=== PATIENT | female | born 1980 | race Caucasian/White ===

== ENCOUNTER 2018-07-10 21:10 | Inpatient (IN) | payer OTHER ==
[~2018-07-10] VITALS: Ht 167.6 cm; Wt 83.2 kg
[2018-07-10] MEDS ORDERED: ELIQUIS5 MG PO (21:14)
[2018-07-10] MEDS ORDERED: ULTRAM50 MG PO (21:15)
[2018-07-10] MEDS ORDERED: CHANTIX0.5 MG PO (21:15)
[2018-07-10 21:41] LABS: BASOPHILS 0.4 % (0-2); EOSINOPHILS 2.2 % (0-7); HEMATOCRIT 40.6 % (36.0-48.0); IMMATURE GRANULOCYTES 0.1 % (0-5); LYMPHOCYTES 35.9 % (15-50); MCH 30.2 pg (26.0-34.0); MCHC 34.5 g/dL (31.0-37.0); MCV 87.7 fL (80.0-100.0); MEAN PLATELET VOLUME 9.8 fL (7.4-10.4); MONOCYTES 7.3 % (2-11); NEUTROPHILS 54.1 % (40-80); PLATELET COUNT 240 10x3/uL (130-400); RBC 4.63 10x6/uL (4.00-5.40); RDW 12.4 % (11.5-14.5); WBC 7.3 10x3/uL (4.8-10.8)
[2018-07-10 21:53] LABS: ALBUMIN 3.6 g/dL (3.4-5.0); BILIRUBIN - TOTAL 0.42 mg/dL (0.2-1.3); CALCIUM 9.3 mg/dL (8.5-10.1); CARBON DIOXIDE 23.3 mmol/L (21.0-32.0); CREATININE - SERUM 1.1 mg/dL (0.6-1.3); POTASSIUM - SERUM 3.3 mmol/L (3.5-5.1); PROTEIN - SERUM 7.9 g/dL (6.4-8.2)
[2018-07-10 21:56] LABS: INR 1.08 (0.85-1.17); PROTIME 13.5 SECONDS (11.6-15.0)
[2018-07-10 21:58] LABS: D-DIMER-QUANTITATIVE 2.03 ug/mLFEU (0.20-0.54)
--- NOTE | 2018-07-10 23:00 | NUR ---
RECEIVED PT FROM ER VIA WHEEL CHAIR. PT IS ALERT. NO SIGNS OF DISTRESS AT THIS TIME. PT HAS A IV IN THE RIGHT FOREARM. BED IN LOW POSITION WITH CALL LIGHT IN REACH. WILL CONTINUE TO MONITOR PT AND FOLLOW PLAN OF CARE.
[2018-07-11 03:19] VITALS: BP 102/62; BMI 29.6
--- NOTE | 2018-07-11 05:50 | NUR ---
RESTING IN BED WITH EYES CLOSED. NO S/S OF DISTRESS OBSERVED. WILL CONT. POC.
--- NOTE | 2018-07-11 07:15 | NUR ---
REPORT RECIEVED AND MORNING ROUNDING COMPLETE. PT LAYING IN BED EYES CLOSED BREATHING EVEN AND UNLABORED. PT EASILY AROUSED. PT STATES NO NEEDS AT THIS TIME. CALL LIGHT WITHIN REACH AND BED IN LOWEST POSITION.
--- NOTE | 2018-07-11 09:40 | NUR ---
NO NEEDS OR C/O VOICED. CALL LIGHT IN REACH. WILL CONT. PLAN OF CARE.
[2018-07-11 09:49] VITALS: Ht 167.6 cm; Wt 83.2 kg
--- NOTE | 2018-07-11 19:30 | NUR ---
AWAKE AMBULATING BACK TO BED FROM THE BATHROOM. STATED HER RIGHT UPPER ABD FELT TENDER AND BRUISED. A VERY SMALL INJECTION SITE BRUISE NOTED AND TENDER TO TOUCH. ALSO C/O RIGHT UPPER ARM PAIN AND RIGHT ARM IV SITE DISCOMFORT. IV SITE LOOK GOOD, NO REDNESS OR SWELLING NOTED. FLUSHED GOOD AND SHE STATED SHE COULD TASTE THE SALINE. TELEMETRY SHOWS 52 SB. ORIENTED TO CALL LIGHT FOR ANY NEEDS.
--- NOTE | 2018-07-11 22:42 | NUR ---
ADMIN ZOFRAN FOR C/O NAUSEA AND HAD VOMITED APPROX 100 ML.
--- NOTE | 2018-07-12 01:00 | NUR ---
LYING ON RIGHT SIDE WITH EYES CLOSED. NO S/S OF DISCOMFORT. BED IS LOW WITH CALL LIGHT IN REACH.
[2018-07-12 05:39] LABS: BASOPHILS 0.7 % (0-2); EOSINOPHILS 3.9 % (0-7); HEMATOCRIT 39.7 % (36.0-48.0); HEMOGLOBIN 13.1 g/dL (12-16); IMMATURE GRANULOCYTES 0.2 % (0-5); LYMPHOCYTES 39.5 % (15-50); MCH 29.6 pg (26.0-34.0); MEAN PLATELET VOLUME 9.8 fL (7.4-10.4); MONOCYTES 7.3 % (2-11); NEUTROPHILS 48.4 % (40-80); PLATELET COUNT 206 10x3/uL (130-400); RBC 4.42 10x6/uL (4.00-5.40); RDW 12.7 % (11.5-14.5); WBC 5.9 10x3/uL (4.8-10.8)
[2018-07-12 05:41] LABS: MCV 89.8 fL (80.0-100.0)
[2018-07-12 05:59] LABS: ANION GAP 13.4 mmol/L (8-16); CALCIUM 8.1 mg/dL (8.5-10.1); CARBON DIOXIDE 24.6 mmol/L (21.0-32.0)
--- NOTE | 2018-07-12 06:00 | NUR ---
AWAKE. STATES SHE FEELS TIGHTNESS IN HER CHEST AND HER RIGHT ARM HURTS. IV IN RIGHT ARM LOOKS GOOD WITH NO REDNESS OR SWELLING NOTED. DENIES ANY NEEDS.
--- NOTE | 2018-07-12 07:15 | NUR ---
REPORT RECIEVED AND MORING ROUNDING COMPLETE. PT LAYING IN BED EYES CLOSED. BREATHING SHALLOW AND EVEN. BED IN LOWEST POSITION AND CALL LIGHT WITHIN REACH.
--- NOTE | 2018-07-12 10:05 | NUR ---
PT WAS COMPLAINIG OF HAVING A HARD TIME BREATHING, PT'S HANDS STARTED TO CONTRACT AND SHE RPORTED THEM GOING COMPLETELY NUMB, PT WAS UNABLE TO SQUEEZE MY HAND. CALLED A RAPID RESPONSE.
[2018-07-12 10:32] LABS: CREATINE KINASE 78 UL (21-215)
[2018-07-12 10:33] LABS: TROPONIN-I < 0.017 ng/mL (0.000-0.060)
--- NOTE | 2018-07-12 12:10 | NUR ---
PT RESTING COMFORTABLY. NO NEEDS AT THIS TIME AT BEDSIDE. CALL LIGHT WITHIN REACH AND BED IN THE LOWEST POSITION
[2018-07-12] MEDS ORDERED: PROTONIX40 MG PO (12:38)
[2018-07-12] MEDS ORDERED: LOVENOX INJ100 MG/ML SC (12:38)
[2018-07-12] MEDS ORDERED: COUMADIN5 MG PO (12:38)
[2018-07-12] MEDS ORDERED: KLONOPIN1 MG PO (12:38)
--- NOTE | 2018-07-12 13:02 | NUR ---
RESP UL ON . AT BS. STATES SHE FEELS BETTER AT THIS TIME.
[2018-07-12 15:01] LABS: CREATINE KINASE 64 UL (21-215)
[2018-07-12 15:27] LABS: TROPONIN-I < 0.017 ng/mL (0.000-0.060)
--- NOTE | 2018-07-12 16:23 | NUR ---
PT'S RETURNED WITH ALL REQUIRED MEDICATIONS. WILL START DISCHARGE PAPERWORK.
--- NOTE | 2018-07-12 17:17 | NUR ---
PT DISCHARGED, REVIEWED PAPERWORK WITH PT. PT STATED UNDERSTOOD INSTRUCTIONS AND SIGNED PAPERWORK. REMOVED PT'S PIV FROM RIGHT FOREARM. HELD PRESSURE FOR 2 FULL MINTUES. MINNIUMAL BLEEDING NOTED. PT TOOK DOWN VIA WHEELCHAIR.
--- NOTE | 2018-07-13 12:00 | MORECARE ---
CASE MANAGEMENT DISCHARGE SUMMARY PATIENT: LUCAS GRIFFITHS UNIT: [id number] ADM DATE: 07/10/18 AGE: 38 : [birth year] SEX: F ROOM/BED: D.2139 AUTHOR: MICHEL RIVAS PHYSICIAN: REFERRING PHYSICIAN: REGINA CURTIS MD DATE OF SERVICE: 07/13/18 Discharge Plan Patient Name: LUCAS GRIFFITHS Facility: [facility]:[place] : 1980 Planned Disposition: Home Anticipated Discharge Date: 07/12/18 Discharge Date: 07/12/2018 Expected LOS: 2 Initial Reviewer: [email or web address] Initial Review Date: 07/13/2018 Generated: 07/13/18 1:00 pm Patient Name: LUCAS GRIFFITHS Page [id number] at 1200 All edits/amendments must be made on the electronic document DICTATION DATE: 07/13/18 1159 CHRONIC MANAGER: VANESSA 07/13/18 1159 RPT#: [id number] DC DATE:07/12/18 STATUS: DIS IN [facility] [address] [place] [address] END OF REPORT
[2018-07-14 10:19] LABS: ANA REFLEX - DIRECT Negative (Negative)
[2018-07-15 12:20] LABS: LUPUS - INTERPRETATION Comment: (()); LUPUS - THROMBIN TIME 22.3 sec (0.0-23.0); LUPUS - dRVVT 37.4 sec (0.0-47.0); PTT-LA 46.6 sec (0.0-51.9)
--- NOTE | 2018-07-17 12:22 | EC ---
PATIENT:LUCAS GRIFFITHS DATE OF SERVICE: 07/10/18 SEX: F MEDICAL RECORD: [id number] DATE OF : [birth year] LOCATION:D.M2 D.213 AGE OF PATIENT: 38 ADMISSION DATE: 07/10/18 REFERRING PHYSICIAN: INTERPRETING PHYSICIAN: LOWELL HONEYCUTT MD ECHOCARDIOGRAM REPORT ECHO CHARGES 4 ECHO COMPLETE Date: 07/11/18 CLINICAL DIAGNOSIS: PE ECHOCARDIOGRAPHIC MEASUREMENTS (adult normal given) AC root (d.<3.7cm) 2.5 cm LV Septum d (<1.2 cm> 1.1 cm Valve Excursion 1.8 cm LV Septum (systole) 1.4 cm Left Atria (s.<4.0cm> 2.9 cm LVPW d(<1.2cm) 1.2 cm RV (d.<2.3cm) 3.0 cm LVPW (sytole) 1.7 cm LV diastole(<5.6CM) 4.3 cm MV E-F(>70mm/sec) cm LV systole 2.0 cm LVOT Diameter 1.9 cm MV exc.(>10mm) cm Est.ejection fraction (50-75%) % DOPPLER: LVIT cm/sec A 33.0 cm/sec E 60.0 cm/sec LA cm/sec RVSP mmHg LVOT 98.0 cm/sec AOP1/2T m/s Asc. Ao 100 cm/sec RVOT 52.0 cm/sec RA cm/sec PA 78.0 cm/sec AV Gradient Peak 4.0 mmHg AV Mean 2.2 mmHg AV Area 2.8 cm MV Gradient Peak 1.8 mmHg MV Mean 0.58 mmHg MV Area cm COMMENTS: Junior Buyer: 1 KAMLESH LANDAVERDEOE Door Closer Mechanic: 3 Dr. Baldwin TAPE# PACS Pericardial Effusion N DATE OF SERVICE: Adequate 2-D echo, color flow and spectral Doppler, and M-mode. LVH is present. LV internal dimension is normal. Wall motion is normal. EF greater than 55%. Aortic valve is tricuspid. No evidence of stenosis by Doppler interrogation. Left atrium is normal. Mitral valve shows no prolapse. Trace MR. Right-sided chambers are grossly normal. Trace TR. TRANSINT:[id number] Voice Confirmation ID: [id number] DOCUMENT ID: [id number] ECHOCARDIOGRAM REPORT [id number] WEDEHASE,LUCAS LOWELL HONEYCUTT MD at 1222 CC: [id number] DICTATION DATE: 07/12/1856 HARBOR ENGINEER: 07/12/18 1143 DIS IN 07/12/18 [facility] [address] [place] [address]
--- NOTE | 2018-07-17 12:22 | CN ---
PATIENT NAME:LUCAS GRIFFITHS MEDICAL RECORD: [id number] : [birth year] LOCATION:D. D.2139 ADMIT DATE: 07/10/18 ACCOUNT: [id number] CONSULTING PHYSICIAN: LOWELL HONEYCUTT MD REFERRING PHYSICIAN: REGINA CURTIS MD DATE OF CONSULTATION: 07/12/2018 HISTORY: A 38-year-old female transferred from outside hospital after found to have multiple PEs. Currently, she is having hypercoagulable state. No family history of hypercoagulable state or recurrent PEs. She does have history of irritable bowel syndrome but not true autoimmune such as Crohn's. She has a history of peptic ulcer disease as well. She is having chest pain and some shortness, sounds pleuritic. She had an episode where she had questionable hyperinflation with numbness of her feet and hands with contracture. We are asked to see concerning her cardiovascular status. PAST MEDICAL HISTORY: Includes; 1. History of peptic ulcer disease. 2. Pulmonary embolus as described above. 3. Irritable bowel disease. 4. Gastroesophageal reflux disease. ALLERGIES: CODEINE AND HYDROCODONE. MEDICATIONS: These are from transfer. Chantix 1 mg b.i.d., Eliquis 5 b.i.d., and tramadol 50 q. 4 p.r.n. SOCIAL HISTORY: Lives near [place]. Smokes about half pack a day. No set exercise program. REVIEW OF SYSTEMS: The patient reports easy bruising but reports no swollen glands. The patient reports no fever, no night sweats, no significant weight gain, no significant weight loss. No significant exercise tolerance. The patient reports no dry eyes, no irritation, no vision change. Patient reports no difficulty hearing and no ear pain. Patient reports no frequent nose bleeds or nose and sinus problems. Patient reports on arm pain on exertion. No shortness of breath while lying down. No history of heart murmur. Patient reports no cough, no wheezing or coughing up blood. Patient reports no abdominal pain, no vomiting. Normal appetite. No diarrhea and not vomiting blood. No nausea and no constipation. Patient reports no incontinence. No difficulty urinating. No hematuria. No increased frequency. Patient reports no muscle aches. No weakness, no arthralgias, no back pain. No swelling of the extremities. Patient reports no abnormal mole, no jaundice, no rashes. Reports no loss of consciousness. No weakness and no numbness. No seizures, dizziness, or headaches. The patient reports no depression, no sleep disturbance, feeling safe in a relationship and no alcohol abuse. Patient reports on fatigue. Reports no runny nose or sinus pressure. No itching, no hives, and no frequent sneezing. PHYSICAL EXAMINATION: GENERAL: Pleasant female, appears stated age. VITAL SIGNS: Blood pressure 102/62. Pulse 62 and regular. HEENT: Normocephalic and atraumatic. NECK: No bruits noted. HEART: Regular. No gallops are noted. CONSULT REPORT [id number] WEDEHASE,LUCAS LUNGS: Good air excursion. I do not hear a rub. ABDOMEN: Soft and nontender. EXTREMITIES: Pulses are well preserved pulses at 2+. No edema. DIAGNOSTIC DATA: ECG shows minor nonspecific ST-T changes; however, there is no evidence of right heart strain, S1Q3T3 pattern, or right axis deviation. QRS duration is normal. Echocardiographic study was reviewed. No evidence of right heart strain by the echocardiographic study. IMPRESSION: Multifactorial chest pain, doubt ischemia. It certainly does not appear like thrombolytics would be required in this situation. Well compensated both echocardiographically and hemodynamically. Thank you for the consultation. TRANSINT:[id number] Voice Confirmation ID: [id number] DOCUMENT ID: [id number] LOWELL HONEYCUTT MD at 1222 CC: [id number] DICTATION DATE: 07/12/18 1110 AGILE BUSINESS ANALYST: 07/12/18 1631 DIS IN 07/12/18 [facility] [address] [place] [address]
== END 2018-07-12 17:22 | disposition home or self-care (01) | DRG 176 ==
LOC: D.ER 21:10 → D.M2 22:10
PROVIDERS: Emergency Medicine; Internal Medicine Hematology & Oncology; ADMIT Internal Medicine Nephrology
DX: I26.99 Other pulmonary embolism without acute cor pulmonale (principal); F17.213 Nicotine dependence, cigarettes, with withdrawal; I82.532 Chronic embolism and thrombosis of left popliteal vein; E87.6 Hypokalemia; K58.9 Irritable bowel syndrome, unspecified; K21.9 Gastro-esophageal reflux disease without esophagitis; Z79.01 Long term (current) use of anticoagulants; F41.0 Panic disorder [episodic paroxysmal anxiety]

== ENCOUNTER 2018-09-14 14:02 | Emergency (ER) | payer OTHER ==
[~2018-09-14] VITALS: Ht 167.6 cm; Wt 90.9 kg
[~2018-09-14 14:02] MED LIST: CHANTIX0.5 MG PO; COUMADIN5 MG PO; ELIQUIS5 MG PO; KLONOPIN1 MG PO; LOVENOX INJ100 MG/ML SC; PROTONIX40 MG PO; ULTRAM50 MG PO
[2018-09-14 14:04] VITALS: Ht 167.6 cm; Wt 90.9 kg
[2018-09-14] MEDS ORDERED: ZYRTEC10 MG PO (14:09)
[2018-09-14] MEDS ORDERED: BACTROBAN NASAL1 GM (14:10)
[2018-09-14] MEDS ORDERED: CEREFOLIN TAB1 TAB PO (14:11)
[2018-09-14 14:51] LABS: BASOPHILS 0.3 % (0-2); EOSINOPHILS 0.9 % (0-7); HEMOGLOBIN 14.3 g/dL (12-16); IMMATURE GRANULOCYTES 0.3 % (0-5); LYMPHOCYTES 26.9 % (15-50); MCH 29.9 pg (26.0-34.0); MCHC 34.9 g/dL (31.0-37.0); MCV 85.6 fL (80.0-100.0); MEAN PLATELET VOLUME 9.7 fL (7.4-10.4); MONOCYTES 6.4 % (2-11); NEUTROPHILS 65.2 % (40-80); RBC 4.79 10x6/uL (4.00-5.40); RDW 12.9 % (11.5-14.5); WBC 11.6 10x3/uL (4.8-10.8)
[2018-09-14 14:54] LABS: PLATELET COUNT 260 10x3/uL (130-400)
[2018-09-14 15:08] LABS: ALBUMIN 3.9 g/dL (3.4-5.0); ALKALINE PHOSPHATASE 56 U/L (46-116); ALT (SGPT) 46 U/L (10-68); BILIRUBIN - TOTAL 0.53 mg/dL (0.2-1.3); CALC OSMOLALITY 269 mosm/kg (275-300); CALCIUM 8.8 mg/dL (8.5-10.1); CARBON DIOXIDE 23.5 mmol/L (21.0-32.0); CHLORIDE - SERUM 101 mmol/L (98-107); CREATININE - SERUM 1.3 mg/dL (0.6-1.3); GLUCOSE 114 mg/dL (74-106); POTASSIUM - SERUM 3.2 mmol/L (3.5-5.1); PROTEIN - SERUM 8.5 g/dL (6.4-8.2); SODIUM 135 mmol/L (136-145); UREA NITROGEN 11 mg/dL (7-18); eGFR NON AFRICAN AMERICAN 48 mL/min (90-120)
[2018-09-14 15:20] LABS: CKMB 0.2 U/L (0.0-3.6); CREATINE KINASE 126 UL (21-215); PRO BNP 38 pg/mL (0-125); TROPONIN-I < 0.017 ng/mL (0.000-0.060)
[2018-09-14 16:10] LABS: D-DIMER-QUANTITATIVE 0.8 ug/mLFEU (0.20-0.54); INR 1.77 (0.85-1.17)
[2018-09-14 16:34] LABS: BASOPHILS 0.3 % (0-2); EOSINOPHILS 0.7 % (0-7); HEMATOCRIT 39.1 % (36.0-48.0); HEMOGLOBIN 13.7 g/dL (12-16); IMMATURE GRANULOCYTES 0.1 % (0-5); LYMPHOCYTES 18.9 % (15-50); MCH 29.7 pg (26.0-34.0); MCV 84.6 fL (80.0-100.0); MEAN PLATELET VOLUME 9.4 fL (7.4-10.4); MONOCYTES 7.3 % (2-11); NEUTROPHILS 72.7 % (40-80); PLATELET COUNT 218 10x3/uL (130-400); RBC 4.62 10x6/uL (4.00-5.40); RDW 12.8 % (11.5-14.5); WBC 8.9 10x3/uL (4.8-10.8)
[2018-09-14 16:39] LABS: APTT 44.3 SECONDS (22.8-39.4); INR 1.82 (0.85-1.17); PROTIME 20.4 SECONDS (11.6-15.0)
[2018-09-14 16:40] LABS: D-DIMER-QUANTITATIVE 0.62 ug/mLFEU (0.20-0.54)
[2018-09-14 16:54] LABS: ALBUMIN 3.7 g/dL (3.4-5.0); ALKALINE PHOSPHATASE 57 U/L (46-116); ALT (SGPT) 46 U/L (10-68); BILIRUBIN - TOTAL 0.56 mg/dL (0.2-1.3); CALC OSMOLALITY 269 mosm/kg (275-300); CALCIUM 8.7 mg/dL (8.5-10.1); CARBON DIOXIDE 24.2 mmol/L (21.0-32.0); CHLORIDE - SERUM 101 mmol/L (98-107); CKMB 0.1 U/L (0.0-3.6); CREATINE KINASE 121 UL (21-215); CREATININE - SERUM 1.3 mg/dL (0.6-1.3); GLUCOSE 104 mg/dL (74-106); MAGNESIUM - SERUM 1.9 mg/dL (1.8-2.4); POTASSIUM - SERUM 3.4 mmol/L (3.5-5.1); PRO BNP 36 pg/mL (0-125); PROTEIN - SERUM 8.2 g/dL (6.4-8.2); SODIUM 135 mmol/L (136-145); UREA NITROGEN 12 mg/dL (7-18); eGFR NON AFRICAN AMERICAN 48 mL/min (90-120)
[2018-09-14 16:59] LABS: TROPONIN-I < 0.017 ng/mL (0.000-0.060)
[2018-09-14 17:28] LABS: APPEARANCE CLEAR (CLEAR); BILIRUBIN NEGATIVE (NEGATIVE); COLOR YELLOW (YELLOW); GLUCOSE NEGATIVE (NEGATIVE); KETONE NEGATIVE (NEGATIVE); NITRITE NEGATIVE (NEGATIVE); PROTEIN NEGATIVE (NEGATIVE); UROBILINOGEN NORMAL (NORMAL)
[2018-09-14 17:29] LABS: EPITHELIAL CELLS 0-5 /hpf (0-5); RED CELLS - URINE 0-5 /hpf (0-5); WHITE CELLS - URINE 0-5 /hpf (0-5)
[2018-09-14 17:30] LABS: BACTERIA FEW /hpf (NONE SEEN)
[2018-09-14 17:49] LABS: BASOPHILS 0.1 % (0-2); EOSINOPHILS 0.4 % (0-7); HEMATOCRIT 38.2 % (36.0-48.0); HEMOGLOBIN 13.2 g/dL (12-16); IMMATURE GRANULOCYTES 0.1 % (0-5); LYMPHOCYTES 18.4 % (15-50); MCH 29.5 pg (26.0-34.0); MCHC 34.6 g/dL (31.0-37.0); MCV 85.5 fL (80.0-100.0); MEAN PLATELET VOLUME 9.7 fL (7.4-10.4); MONOCYTES 6.8 % (2-11); NEUTROPHILS 74.2 % (40-80); PLATELET COUNT 214 10x3/uL (130-400); RBC 4.47 10x6/uL (4.00-5.40); RDW 12.7 % (11.5-14.5); WBC 8.5 10x3/uL (4.8-10.8)
[2018-09-14 18:03] LABS: APTT 41.7 SECONDS (22.8-39.4); INR 1.84 (0.85-1.17); PROTIME 20.6 SECONDS (11.6-15.0)
[2018-09-14 18:04] LABS: D-DIMER-QUANTITATIVE 0.6 ug/mLFEU (0.20-0.54)
[2018-09-14] MEDS ORDERED: CYCLOBENZAPRINE10 MG PO (18:10)
[2018-09-14] MEDS ORDERED: VOLTAREN100 GM TOPICAL (18:10)
[2018-09-14] MEDS ORDERED: BUSPIRONE HCL7.5 MG PO (18:10)
[2018-09-14 18:16] LABS: ALBUMIN 3.5 g/dL (3.4-5.0); ALKALINE PHOSPHATASE 55 U/L (46-116); ALT (SGPT) 53 U/L (10-68); BILIRUBIN - TOTAL 0.56 mg/dL (0.2-1.3); CALC OSMOLALITY 269 mosm/kg (275-300); CALCIUM 8.4 mg/dL (8.5-10.1); CHLORIDE - SERUM 101 mmol/L (98-107); CREATININE - SERUM 1.2 mg/dL (0.6-1.3); GLUCOSE 102 mg/dL (74-106); MAGNESIUM - SERUM 1.7 mg/dL (1.8-2.4); POTASSIUM - SERUM 3.1 mmol/L (3.5-5.1); PRO BNP 35 pg/mL (0-125); PROTEIN - SERUM 7.8 g/dL (6.4-8.2); SODIUM 135 mmol/L (136-145); UREA NITROGEN 12 mg/dL (7-18); eGFR NON AFRICAN AMERICAN 53 mL/min (90-120)
[2018-09-14 18:17] LABS: TROPONIN-I < 0.017 ng/mL (0.000-0.060)
[2018-09-14 19:32] VITALS: BP 111/60
[2018-09-14] MEDS ORDERED: ZOFRAN4 MG PO (19:38)
== END 2018-09-14 19:58 | disposition home or self-care (01) ==
LOC: D.ER 14:02
PROVIDERS: Emergency Medicine; Nurse Practitioner Family
DX: R06.00 Dyspnea, unspecified (principal); F41.9 Anxiety disorder, unspecified; Z86.711 Personal history of pulmonary embolism; Z79.01 Long term (current) use of anticoagulants; M25.511 Pain in right shoulder